=== PATIENT | male | born 1940 | race Caucasian/White ===

== ENCOUNTER 2016-12-08 11:50 | Inpatient (IN) ==
[2016-12-08] MEDS ORDERED: NS 1,000 ML IV ONE ×2 (12:10→15:14)
[2016-12-08 12:34] LABS: BE -4.9 mmoll (-3.0-3.0); BLOOD TYPE ARTERIAL; METHB 1.1 % (0.0-1.5); PCO2(98.6) 34 mmHg (35-45); PO2(98.6) 59 mmHg (60-100); SAMPLE BLOOD; SAO2 92.1 % (95.0-100.0); pH(98.6) 7.37 (7.35-7.45)
[2016-12-08 12:42] LABS: MODALITY ROOM AIR
[2016-12-08 12:43] LABS: ALLEN TEST YES; DRAW SITE L RADIAL
[2016-12-08 12:52] LABS: BASO% 0.1 % (0.0-0.8); HEMATOCRIT 34.3 % (42.0-52.0); HEMOGLOBIN 11.4 g/dL (14.0-18.0); IMM GRAN# 0.12 X1000 (0.0-0.04); IMM GRAN% 0.6 % (0.0-0.5); LYMPH# 1.01 X1000 (1.2-3.4); LYMPH% 4.9 % (20.5-51.1); MANUAL DIFF NEEDED? NO; MCH 29.2 PG (27-31); MCHC 33.2 g/dL (33-37); MCV 87.7 FL (81-99); MONO# 1.55 X1000 (0.11-0.59); MONO% 7.5 % (1.7-9.3); MPV 11.5 FL (7.4-10.4); NEUT% 86.9 % (42.2-75.2); PLT 341 X1000 (130-400); RBC 3.91 XMIL (4.7-6.1)
[2016-12-08 13:03] LABS: INR 1.11 (0.86-1.15); PROTIME 15.2 Seconds (12.1-15.5)
[2016-12-08 13:04] LABS: PTT PL 30.6 Seconds (22.6-43.9)
[2016-12-08 13:05] LABS: CALCIUM 8.3 mg/dL (8.8-10.2); POTASSIUM 4.7 mmol/L (3.5-5.1); TOTAL BILIRUBIN 0.9 mg/dL (0.20-1.00)
[2016-12-08 13:33] LABS: CK INDEX 1.5 (0.0-2.5); CK-MB 190.3 ng/mL (0.0-5.0)
--- NOTE | 2016-12-08 13:43 | Diag Imaging Result Doc PS360 ---
CHEST-1 VIEW - 12/08/2016 INDICATION: AMS TECHNIQUE: COMPARISON: None FINDINGS: The lungs are normally expanded and clear. Heart size and mediastinal contours are normal. No pneumothorax or pleural effusion. IMPRESSION: Negative exam. Electronically signed by Curtis Becker 12/08/2016 1:40 PM
--- NOTE | 2016-12-08 13:43 | Diag Imaging Result Doc PS360 ---
EXAM : HEAD/C-SPINE W/O CONTRAST HISTORY: Fall/AMS TECHNIQUE: CT brain without contrast. CT cervical spine without contrast. Dose reduction protocol. COMPARISON: None. FINDINGS: Head: No parenchymal hemorrhage. No epidural or subdural hematoma. No subarachnoid hemorrhage. No mass identified on this noncontrasted exam. No hydrocephalus. There is atrophy with chronic microvascular ischemic changes. No sinus opacification. Cervical spine: There is good alignment to the cervical spine. No precervical soft tissue swelling. No subluxation. No fracture. There are prominent degenerative changes throughout the cervical spine in addition to scoliosis. IMPRESSION: Head: No hemorrhage. No injury. Cervical spine: No acute fracture. Electronically signed by Earnest Gonzalez 12/08/2016 1:40 PM
--- NOTE | 2016-12-08 13:50 | Diag Imaging Result Doc PS360 ---
EXAM: THORAX/ABDOMEN/PELVIS W/O CONT HISTORY: Fall/AMS TECHNIQUE: CT chest without contrast. CT abdomen and pelvis without contrast. Dose reduction protocol. COMPARISON: None. FINDINGS: Chest: No pleural effusions. No pneumothoraces. There is a nondisplaced fracture to the right eighth rib laterally and mildly displaced fracture to the anterior seventh rib. There are nondisplaced fractures to the left hip, sixth, and seventh ribs and mild displacement to the eighth and ninth ribs tiny contusion in the right middle lobe versus atelectasis. No enlarged lymph nodes. No consolidation. Abdomen and pelvis: Exam is limited for injury to the abdomen and pelvis with out intravenous contrast. The gallbladder has been removed. No fluid about the liver or spleen. Normal noncontrasted liver, spleen, and pancreas. There is thickening to the adrenal glands. No retroperitoneal hematoma. No renal stones. No hydronephrosis. Mild dilatation to the distal abdominal aorta with maximum diameter of 2.8 cm. Prominent atherosclerosis. No bowel obstruction. No inflammation about the cecum. No abscess. There is a fat filled umbilical hernia. The urinary bladder is distended and appears normal. The prostate measures 4.7 cm in transverse dimension. There are small iliac and inguinal lymph nodes. IMPRESSION: Chest: There are multiple bilateral rib fractures. No pneumothoraces. Abdomen and pelvis: Unable to exclude injury to the abdomen and pelvis without intravenous contrast. There are multiple incidental findings as described. Electronically signed by Earnest Gonzalez 12/08/2016 1:48 PM
--- NOTE | 2016-12-08 13:55 | EKG Report ---
Test Performed on : 12/08/2016 12:25:29 PM Test Reason : AMS Blood Pressure : / mmHG Vent. Rate : 095 BPM Atrial Rate : 095 BPM P-R Int : 162 ms QRS Dur : 076 ms QT Int : 348 ms P-R-T Axes : 062 -19 094 degrees QTc Int : 437 ms Normal sinus rhythm. Septal infarct , age undetermined Abnormal ECG No previous ECGs available Unconfirmed Result
[2016-12-08 14:00] LABS: BILIRUBIN URINE NEGATIVE (NEGATIVE); BLOOD URINE 4+ (NEGATIVE); CLARITY CLEAR (CLEAR); COLOR AMBER; LEUKOCYTES URINE TRACE (NEGATIVE); NITRITE URINE NEGATIVE (NEGATIVE); SP GRAVITY URINE 1.015; UROBILINOGEN URINE NORMAL
[2016-12-08 14:01] LABS: URINE CAST NONE SEEN /LPF; URINE CRYSTAL NONE SEEN /HPF; URINE CULTURE PL NEEDED? YES; URINE EPITHELIAL CELLS <10 /HPF (<10); URINE RBC <10 /HPF (<10); URINE SOURCE CLEAN CATCH
[2016-12-08 14:02] LABS: UR AMPHETAMINES QUAL NONE DETECTED (NONE DETECT); UR BARBITUATES QUAL NONE DETECTED (NONE DETECT); UR BENZODIAZEPIN QUAL NONE DETECTED (NONE DETECT); UR CANNABINOIDS QUAL NONE DETECTED (NONE DETECT); UR COCAINE QUAL NONE DETECTED (NONE DETECT); UR MDMA QUAL NONE DETECTED (NONE DETECT); UR METHADONE QUAL NONE DETECTED (NONE DETECT); UR METHAMPHETAMINE QUAL NONE DETECTED (NONE DETECT); UR OPIATES QUAL PRESUMPTIVE POSITIVE (NONE DETECT); UR OXYCODONE QUAL PRESUMPTIVE POSITIVE (NONE DETECT); UR PCP QUAL NONE DETECTED (NONE DETECT); UR TCA QUAL NONE DETECTED (NONE DETECT)
[2016-12-08] MEDS ORDERED: ROCEPHIN 1 GM/NS 1 GM/50 ML IVPB IV ONE (15:11)
[2016-12-08] MEDS ORDERED: NS 1,000 ML ONE (15:15)
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
[2016-12-08] MEDS ORDERED: ZOFRAN IV PRN (18:26)
[2016-12-08] MEDS ORDERED: TYLENOL PO PRN (18:26)
[2016-12-08 19:19] LABS: UR CREAT RANDOM 172.3 mg/dL (14-26)
[2016-12-08] MEDS: DEMEROL IV PRN (22:01)
[2016-12-08] MEDS: NS 1,000 ML IV SCH (22:02)
[2016-12-09] MEDS: NS 1,000 ML IV SCH ×3 (05:43→18:45)
[2016-12-09 07:55] LABS: ALBUMIN 3.3 g/dL (3.5-5.0); CALCIUM 7.7 mg/dL (8.8-10.2); POTASSIUM 5.1 mmol/L (3.5-5.1); TOTAL BILIRUBIN 0.53 mg/dL (0.20-1.00); TOTAL PROTEIN 6.5 g/dL (6.3-8.3)
[2016-12-09 07:57] LABS: BASO% 0.1 % (0.0-0.8); HEMATOCRIT 31.5 % (42.0-52.0); HEMOGLOBIN 9.9 g/dL (14.0-18.0); IMM GRAN# 0.05 X1000 (0.0-0.04); IMM GRAN% 0.3 % (0.0-0.5); LYMPH% 6.3 % (20.5-51.1); MANUAL DIFF NEEDED? YES; MCH 28.4 PG (27-31); MCHC 31.4 g/dL (33-37); MCV 90.3 FL (81-99); MONO# 0.95 X1000 (0.11-0.59); MONO% 6.6 % (1.7-9.3); MPV 11.4 FL (7.4-10.4); NEUT% 86.7 % (42.2-75.2); PLT 258 X1000 (130-400); RBC 3.49 XMIL (4.7-6.1)
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
[2016-12-09 08:06] LABS: BANDS 2 % (0-1); LYMPHS 6 % (21-51); MONO 8 % (1-9)
[2016-12-09 08:29] LABS: CK INDEX 1.5 (0.0-2.5); CK-MB 112.6 ng/mL (0.0-5.0)
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
[2016-12-09] MEDS: ROCEPHIN 1 GM/NS 1 GM/50 ML IVPB IV SCH (15:13)
[2016-12-09] MEDS: DEMEROL IV PRN (17:08)
--- NOTE | 2016-12-09 18:27 | PROGRESS NOTE ---
DATE: 12/09/2016 SUBJECTIVE: Patient is breathing a little bit better. OBJECTIVE: Vital Signs: Blood pressure is 162/69, heart rate of 90, respiratory rate of 22, temperature 97.8 degrees. Cardiovascular: Regular rate and rhythm. Pulmonary: Bilateral breath sounds. Clear to auscultation. GI: Soft, nontender, nondistended. Bowel sounds are positive. LABORATORY DATA: White count 14, hemoglobin and hematocrit 9 and 31, platelets 258,000. BUN and Creatinine 87 and 5.9. CK-MB 112. CPK 75-25. PROBLEM LIST: 1. Acute kidney injury, possibly acute on chronic. There has been not much improvement. We will continue fluids, strict I's and O's, and follow. 2. Multiple rib fractures. Continue pain control and monitor. 3. Rhabdomyolysis. He is on aggressive hydration. Continue to monitor CPK. 4. There is some question of a hip fracture. I am not sure if that is accurate, so we will continue to follow. 5. Disposition pending improvement in his kidney function. We will continue to follow. 6. Urinary tract infection, possible urinary tract infection although negative nitrite with 10-20 white blood cells. We will continue to monitor. cc: Brandon Joel MD
[2016-12-09] MEDS: MORPHINE IV PRN (21:28)
[2016-12-10] MEDS: NS 1,000 ML IV SCH ×3 (01:40→16:40)
[2016-12-10 07:35] LABS: HEMATOCRIT 31.8 % (42.0-52.0); HEMOGLOBIN 10.2 g/dL (14.0-18.0); MCH 28.7 PG (27-31); MCHC 32.1 g/dL (33-37); MCV 89.6 FL (81-99); MPV 11.4 FL (7.4-10.4); RBC 3.55 XMIL (4.7-6.1)
[2016-12-10 08:01] LABS: CALCIUM 8.2 mg/dL (8.8-10.2); POTASSIUM 5.4 mmol/L (3.5-5.1)
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
[2016-12-10] MEDS ORDERED: LASIX IV ONE (15:59)
--- NOTE | 2016-12-10 16:28 | PROGRESS NOTE ---
DATE: 12/10/2016 SUBJECTIVE: Patient is sitting up in bed eating breakfast. He has no complaints this morning. OBJECTIVE: Vital signs: Temperature 98.8 degrees, pulse 90, respiratory rate 21, blood pressure 180/87. Intake 3.8 L, output 700 mL. PHYSICAL EXAMINATION: General: Elderly gentleman sitting up in bed. He is awake, alert, no acute distress. HEENT: Normocephalic, atraumatic. Conjunctivae pink. COLIN, conjunctivae pale. Oral mucosa moist. Neck: Supple. Trachea midline. No JVD. Cardiovascular: Regular rate and rhythm. No murmur or gallop is appreciated. Pulmonary: He has equal excursion. He is clear bilaterally. No increased work of breathing on room air. Abdomen: Soft, positive bowel sounds. : He is voiding. Extremities: No clubbing, cyanosis. He has some trace pretibial edema noted. Integumentary: Skin is warm and dry. LAB DATA: WBC of 13.6, hemoglobin 10.2. Sodium 140, potassium 5.4, CO2 18, BUN 81, creatinine 4.8 (5.9). ASSESSMENT AND PLAN: Acute kidney injury, acute tubular necrosis secondary to rhabdomyolysis. Renal function has improved overnight. We will continue current treatment. Check labs in the morning. He does not have any indication today for other intervention. Dictated by DONNA Desai for He Vazquez MD [facility], data reviewed, discussed with Haydee Blum on 12/10/16. I agree with the above assessment and plan of care. cc: He Vazquez MD [facility]
--- NOTE | 2016-12-10 16:32 | Diag Imaging Result Doc PS360 ---
EXAM: CHEST-PORTABLE HISTORY: increase congestion TECHNIQUE: AP portable at 1624 COMMENT: The inspiration is suboptimal. There is cardiomegaly. There is ill-defined opacity in the right lower lobe which was not present on 12/08/2016. IMPRESSION: Pneumonia right lower lobe. Electronically signed by Jarocho Valenzuela 12/10/2016 4:29 PM
[2016-12-10] MEDS: ROCEPHIN 1 GM/NS 1 GM/50 ML IVPB IV SCH (16:41)
[2016-12-10] MEDS: DUONEB (A & A) INH SCH ×2 (19:27→23:28)
[2016-12-11] MEDS: DUONEB (A & A) INH SCH ×6 (04:01→23:07)
[2016-12-11] MEDS: NS 1,000 ML IV SCH ×2 (04:03→21:46)
[2016-12-11 08:37] LABS: ALBUMIN 3.1 g/dL (3.5-5.0); CALCIUM 8.5 mg/dL (8.8-10.2); POTASSIUM 4.9 mmol/L (3.5-5.1)
[2016-12-11] MEDS: MORPHINE IV PRN (09:30)
--- NOTE | 2016-12-11 12:44 | PROGRESS NOTE ---
DATE: 12/11/2016 SUBJECTIVE: Mr. Perera is feeling better. He is eating a little better. He is less confused, less lethargic. OBJECTIVE: Vital Signs: Temperature 98.4 degrees, pulse 86, respirations 18, blood pressure 179/76. Lungs are clear in all lung brooks. Cardiovascular: Regular rhythm and rate without murmur or S3. He has 2+ pedal edema with fissuring skin, dry, chronic venous stasis dermatosis apparent with pigmentation. His blood pressures, systolic, consistently above 160. Chest x-ray from yesterday showed pneumonia right lower lobe. ASSESSMENT AND PLAN: 1. Acute kidney injury. Acute tubular necrosis secondary to rhabdomyolysis and renal function has improved. Continue current treatment. 2. Pneumonia. Continue present antibiotics. 3. Rhabdomyolysis which is improved with IV fluids. 4. Urinary tract sediment and I am not sure he had a true infection. 5. Chronic venous stasis. Chronic venous stasis dermatosis. Topical care. They appear to be improving. 6. General weakness and deconditioning. Continue physical therapy. On renal ultrasound, he had layering debris and mucosal thickening in the urinary bladder. Normal exam of the kidneys. LABORATORY DATA: White count has come down nicely. Hematocrit is stable at 31, platelet count 245,000. Chemistries: Creatinine has come down to 4.0. I reviewed orders, and I do not see any change. cc: Ravi Chappell MD
[2016-12-11] MEDS: ROCEPHIN 1 GM/NS 1 GM/50 ML IVPB IV SCH (14:38)
--- NOTE | 2016-12-11 15:36 | PROGRESS NOTE ---
DATE: 12/11/2016 SUBJECTIVE: Patient is sitting up in bed. He is awake and alert. He is eating better. OBJECTIVE: Vital Signs: Temperature 98.4 degrees, pulse 86, respiratory rate 18, blood pressure 179/76. Intake 3.2 L. Output 3.2 L. PHYSICAL EXAMINATION: General: This is a elderly gentleman sitting up in bed. He is awake, alert, no acute distress. HEENT: Normocephalic, atraumatic. He has some ecchymoses around the left eye. Oral mucosa is moist. COLIN, conjunctivae pink. Neck: Supple. No JVD. Cardiovascular: Regular rate and rhythm. No murmur or gallop. Pulmonary: Equal excursion. He is clear bilaterally. Abdomen: Soft, positive bowel sounds. : Not inspected. He is voiding without difficulty. Extremities: He has 1 to 2+ pretibial edema. Chronic venous stasis changes noted. He is moving all extremities. He has been ambulatory with assistance. Integumentary: Skin is warm and dry. See above. LAB DATA: Sodium 140, potassium 4.9, chloride 103, CO2 20, BUN 78, creatinine 4.0 (4.8), phosphorus 6.1. ASSESSMENT AND PLAN: 1. Acute kidney injury, acute tubular necrosis secondary to rhabdomyolysis. His renal function has continued to slowly improve over the course of the hospitalization. He is euvolemic with his I's and O's. We will continue current therapy. He has no indications for other intervention at this time. We will check labs in the morning. 2. Pneumonia, on appropriately dosed antibiotics. 3. Urinary tract infection. 4. Electrolytes, acid-base balance. These are acceptable. Continue current treatment. Dictated by DONNA Desai for He Vazquez MD Patient seen, data reviewed, discussed with Haydee Blum on 12/11/16. I agree with the above assessment and plan of care. cc: He Vazquez MD [facility]
[2016-12-12 01:44] LABS: MAGNESIUM 2.1 mg/dL (1.5-2.7); POTASSIUM 4.9 mmol/L (3.5-5.1)
[2016-12-12] MEDS: DUONEB (A & A) INH SCH ×6 (03:31→22:45)
[2016-12-12] MEDS: MORPHINE IV PRN (03:58)
[2016-12-12] MEDS ORDERED: APRESOLINE IV SCH (04:30)
[2016-12-12] MEDS: APRESOLINE IV PRN (04:50)
[2016-12-12 07:32] LABS: ALBUMIN 3.1 g/dL (3.5-5.0); CALCIUM 8.2 mg/dL (8.8-10.2); POTASSIUM 4.2 mmol/L (3.5-5.1)
--- NOTE | 2016-12-12 11:52 | PROGRESS NOTE ---
DATE: 12/12/2016 SUBJECTIVE: He is a little confused and anxious today. No shortness of breath. OBJECTIVE: Vital Signs: Blood pressure 170/81, heart rate 99, respiration 18, afebrile. Intake 1.4 L. Output 500 mL. Incompletely measured. Generally, as above. Skin: Warm and dry. Bruising on the right hip and around the left eye. Conjunctivae are pink. Neck: Neck veins are not appreciated. Trachea is midline. Heart: Regular. Mildly tachycardic. No gallops. Lungs: Have equal breath sounds. Coarse. No crackles. Abdomen: Soft, nontender. Bowel sounds present. Extremities: Have 1+ edema. No clubbing or cyanosis. IMPRESSION/PLAN: Acute kidney injury. BUN and creatinine are progressively improving. His last CK was down to 7500. His volume status looks okay but he has developed some edema so I will stop his IV fluids today. Continue to observe. His electrolytes are acceptable and acid-base is acceptable. I do not think his change in sensorium is related to his kidney disease. I had some concern that he might be withdrawing, but does not use alcohol, according to the initial note. cc: He Vazquez MD
--- NOTE | 2016-12-12 14:17 | PROGRESS NOTE ---
DATE: 12/12/2016 SUBJECTIVE: Mr. Perera is awake and alert. His lower extremities look better. They are wrapped with Kerlix. No complaints of pain. OBJECTIVE: Vital signs: Temperature 98.5 degrees, pulse 99, respirations 18, blood pressure 170/81. Lungs: Clear to auscultation. Cardiovascular exam: Regular rhythm and rate without murmur or S3. Abdomen: Soft. Skin: Warm and dry. : Urine output is over 2 L. LAB: White count 13,670, hematocrit 31, platelet count 245,000. Chemistry: Sodium 141, potassium 4.2, chloride 105, BUN 66, creatinine 3.2 which is coming down nicely. Blood sugars 117, 104 and 127. ASSESSMENT AND PLAN: 1. Acute kidney injury. BUN and creatinine continue to improve. 2. He had rhabdomyolysis. CPK is coming down and clinically better. 3. Still some episodes of confusion, but has improved. 4. Pneumonia. Continue present antibiotics. 5. Treatment for urinary tract infection. Slow and steady improvement. 6. Chronic venous stasis with dermatosis, topical dermatitis. Continue present treatment. I do not see any changes in the orders. He is on ceftriaxone. cc: Ravi Chappell MD
[2016-12-12] MEDS: FLOMAX PO SCH ×2 (16:38→22:40)
[2016-12-12] MEDS: ROCEPHIN 1 GM/NS 1 GM/50 ML IVPB IV SCH (16:38)
[2016-12-13] MEDS: APRESOLINE IV PRN (01:07)
[2016-12-13] MEDS ORDERED: NS 500 ML IV ONE (02:49)
[2016-12-13] MEDS ORDERED: LANOXIN IV ONE (03:15)
[2016-12-13] MEDS: DUONEB (A & A) INH SCH ×6 (03:16→23:40)
[2016-12-13 03:24] LABS: URINE CULTURE NEEDED? NO; URINE SOURCE CATH
[2016-12-13 03:36] LABS: BILIRUBIN URINE NEGATIVE (NEGATIVE); BLOOD URINE MODERATE (NEGATIVE); COLOR STRAW; GLUCOSE URINE NEGATIVE (NEGATIVE); LEUKOCYTES URINE NEGATIVE (NEGATIVE); NITRITE URINE NEGATIVE (NEGATIVE); PROTEIN URINE 70 mg/dL (NEGATIVE); SP GRAVITY URINE 1.007; TURBIDITY URINE HAZY (CLEAR); UROBILINOGEN URINE NORMAL (NORMAL)
[2016-12-13 03:38] LABS: URINE MICRO REVIEW NEEDED? YES
[2016-12-13] MEDS ORDERED: CARDIZEM 100 MG/NS 100 MG/100 ML IVPB IV SCH (04:06)
[2016-12-13 04:22] LABS: URINE CASTS GRANULAR PRESENT
[2016-12-13] MEDS: CARDIZEM 125/NS 125 MG/125 ML IVPB IV SCH (04:24)
[2016-12-13 07:42] LABS: ALBUMIN 3.1 g/dL (3.5-5.0); CALCIUM 8.2 mg/dL (8.8-10.2); POTASSIUM 3.9 mmol/L (3.5-5.1)
--- NOTE | 2016-12-13 08:31 | PROGRESS NOTE ---
DATE: 12/13/2016 SUBJECTIVE: Mr. Perera with into atrial fibrillation around 3 o'clock this morning. Rapid rate was 160s, 180s. This morning he was sleeping well, he was easy to arouse, appeared a little lethargic, but no complaints of pain. OBJECTIVE: Vital Signs: Temperature 97 degrees, pulse 106 respirations 20, blood pressure 121/68. Lungs: Clear in all lung brooks. Cardiovascular exam: Regular rhythm and rate without murmur or S3. Abdomen: Soft. Skin: Warm and dry. : Urine output 1100 mL. LAB REVIEWED FROM THIS MORNING: Sodium 143, potassium 3.9, chloride 108, BUN 51, creatinine 2.4, magnesium is 2.1. ASSESSMENT AND PLAN: 1. Acute kidney injury, rhabdomyolysis. BUN and creatinine improving. Renal function is improving. 2. Paroxysmal atrial fibrillation with rapid ventricular rate. He is on a Cardizem drip. We will ask cardiology to evaluate. Currently getting 5 mg Cardizem every hour. 3. On ceftriaxone and treating for pneumonia, which appears to be improving. 4. Potentially urinary tract infection. 5. Chronic venous stasis with dermatosis. Legs are improving. Continue topical care. 6. In general, weakness and deconditioning. Continue physical therapy. His lab looks pretty unremarkable. 7. Sugars running in the low 100s. His series of sugar is 112, 117, 104 and 127. Encourage oral intake. cc: Ravi Chappell MD
[2016-12-13] MEDS: FLOMAX PO SCH ×2 (08:45→20:10)
[2016-12-13] MEDS: CARDIZEM PO SCH ×3 (09:08→20:10)
[2016-12-13] MEDS: LANOXIN PO SCH (09:09)
[2016-12-13] MEDS: ROCEPHIN 1 GM/NS 1 GM/50 ML IVPB IV SCH (14:16)
[2016-12-14] MEDS: CARDIZEM PO SCH ×4 (02:25→20:02)
[2016-12-14] MEDS: DUONEB (A & A) INH SCH ×6 (03:50→22:47)
[2016-12-14] MEDS: CARDIZEM 125/NS 125 MG/125 ML IVPB IV SCH (04:18)
[2016-12-14 08:06] LABS: ALBUMIN 3.8 g/dL (3.5-5.0); CALCIUM 8.9 mg/dL (8.8-10.2); MAGNESIUM 1.7 mg/dL (1.5-2.7); POTASSIUM 3.9 mmol/L (3.5-5.1)
--- NOTE | 2016-12-14 08:31 | PROGRESS NOTE ---
DATE: 12/14/2016 SUBJECTIVE: Mr. Perera is feeling better. He is stronger. His legs are improving. Breathing is comfortable. PHYSICAL EXAMINATION: Vital Signs: Temperature 98.3 degrees, pulse 88, respirations 17, blood pressure 169/72. Lungs: Are clear in all lung brooks. Cardiovascular Examination: Mr. Perera has remained in sinus rhythm. Regular rhythm and rate. Abdomen: Soft. Skin: Is warm and dry. Is and Os: Urine output almost 4 L. LABORATORY AND X-RAY DATA: Sodium 143, potassium 3.9, chloride 108, bicarb 51, creatinine 2.4. Renal function continues to improve. ASSESSMENT AND PLAN: 1. Acute kidney injury, rhabdomyolysis, improving. Renal function improving steadily. Good urine output. 2. Paroxysmal atrial fibrillation with rapid ventricular rate. He is on oral Cardizem. He is back in sinus rhythm and has remained in sinus rhythm in the last 24 hours. 3. Getting ceftriaxone for pneumonia, which is improving. 4. Potential urinary tract infection, treating. 5. Chronic venous stasis dermatosis which is improving. Continue topical care. 6. General weakness and deconditioning. 7. Diabetes mellitus. Sugars appear under fairly good control. 8. Pleased with his steady improvement. Hopefully, he will be able to go to a rehab center and I think that is what the family is desiring. cc: Ravi Chappell MD
[2016-12-14] MEDS: LANOXIN PO SCH (09:51)
[2016-12-14] MEDS: FLOMAX PO SCH ×2 (09:51→20:02)
[2016-12-14] MEDS: ROCEPHIN 1 GM/NS 1 GM/50 ML IVPB IV SCH (15:17)
[2016-12-14] MEDS: MORPHINE IV PRN (20:01)
[2016-12-15] MEDS: CARDIZEM PO SCH (03:37)
[2016-12-15] MEDS: DUONEB (A & A) INH SCH ×5 (04:32→20:07)
[2016-12-15 05:46] LABS: ALBUMIN 3.3 g/dL (3.5-5.0); CALCIUM 8.3 mg/dL (8.8-10.2); POTASSIUM 3.6 mmol/L (3.5-5.1)
[2016-12-15] MEDS: CARDIZEM 125/NS 125 MG/125 ML IVPB IV SCH (06:17)
--- NOTE | 2016-12-15 06:23 | PROGRESS NOTE ---
DATE: 12/13/2016 ADDENDUM: He has converted back to sinus rhythm. I am going to start him on Cardizem 60 mg q. 6 hours, and he was given 1 dose of digoxin IV last night. I will go ahead and put him on 0.25 mg p.o. q.a.m. If he stays in sinus rhythm, we will stop the IV Cardizem. cc: Ravi Chappell MD
--- NOTE | 2016-12-15 07:16 | EKG Report ---
Test Performed on : 12/13/2016 02:50:56 AM Test Reason : sustained heart rate Blood Pressure : / mmHG Vent. Rate : 166 BPM Atrial Rate : 104 BPM P-R Int : 000 ms QRS Dur : 074 ms QT Int : 282 ms P-R-T Axes : 000 -05 108 degrees QTc Int : 468 ms Atrial fibrillation. with rapid ventricular response. Nonspecific ST and T wave abnormality Abnormal ECG When compared with ECG of 13-DEC-2016 02:50, (Unconfirmed) Atrial fibrillation. has replaced Normal sinus rhythm. Confirmed by Migue Xiong DO ([id number]) on 12/15/2016 6:15:53 PM
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
[2016-12-15] MEDS: FLOMAX PO SCH ×2 (08:23→20:13)
[2016-12-15] MEDS: LANOXIN PO SCH (08:23)
[2016-12-15] MEDS ORDERED: PROSCAR PO SCH (09:00)
[2016-12-15] MEDS ORDERED: CARDIZEM CD PO SCH (09:00)
--- NOTE | 2016-12-15 14:16 | PROGRESS NOTE ---
DATE: 12/15/2016 SUBJECTIVE: Mr. Perera is resting quietly in bed. He has no complaints of pain. Skin is warm and dry. Denies chest pain or increased work of breathing. OBJECTIVE: Vital Signs: Temperature 98.5 degrees, blood pressure 129/78, heart rate 87, respirations 16, he is on room air. He is on room air. Last recorded saturation 95%. He has had 480 in and 900 out per void. LABORATORY DATA: Sodium 142, potassium 3.6, chloride 105, CO2 24, BUN 28 creatinine 1.5, glucose 102, anion gap 13, calcium 8.3, phosphorus 3, albumin 3.3. Previous hemoglobin 10.2 on the 16th. PHYSICAL EXAMINATION: Vital Signs: This is a 76-year-old white male. He is currently resting in bed. He is in no acute distress. Skin: Warm and dry. HEENT: Normocephalic, atraumatic. Conjunctiva is pale. He has COLIN. Mucous membranes moist. Neck: Supple. Trachea midline. No JVD. Cardiovascular: Regular rate and rhythm. He is without murmur or gallop. Lungs: Clear to auscultation anteriorly. Equal excursion on room air. Abdomen: Soft, nontender. Positive bowel sounds. Genitourinary: Not inspected. Adequate void. Extremities: He has trace edema. No clubbing or cyanosis. Neurological: Alert and oriented x3. ASSESSMENT AND PLAN: 1. Acute kidney injury. Patient's baseline creatinine is unknown. His creatinine is down to 1.5. His GFR is 45%. No indications for further intervention. We will follow up in 2-3 weeks post discharge and evaluate his labs. No further indications for intervention. 2. Electrolytes and acid-base balance. These are basically stable. 3. Anemia. This is in target. 4. Acute rhabdomyolysis. This has improved with IV fluids. I would like to thank you for allowing us to follow with this patient. Dictated by DONNA Arndt for He Vazquez MD Patient seen, data reviewed, discussed with Danyell Deng on 12/15/16. I agree with the above assessment and plan of care. cc: DONNA Arndt MD [facility]
[2016-12-15 15:30] VITALS: BP 123/53
== END 2016-12-15 22:19 ==
LOC: P.ED 11:50 → 3N 11:50 → OBSVTOIN 16:46 → SUATTDRO 16:46 → 3N 12-09 10:22 → 3S 12-13 04:01
PROVIDERS: ATTEND Emergency Medicine